=== PATIENT | male | born 1995 | race Caucasian/White ===

== ENCOUNTER 2021-01-31 02:21 | Emergency (ER) | payer OTHER ==
[~2021-01-31] VITALS: Ht 190.5 cm; Wt 114.3 kg
[2021-01-31 02:22] VITALS: BP 140/88
[2021-01-31] MEDS ORDERED: dexameTHASONE 20MG/5ML VIAL (J1100 PER 1MG) IM ONE (03:10)
[2021-01-31] MEDS ORDERED: FAMOTIDINE INJ 20MG/2ML VIAL (S0028 PER 1) IVP ONE (03:10)
[2021-01-31] MEDS ORDERED: dexameTHASONE 20MG/5ML VIAL (J1100 PER 1MG) IV ONE (03:10)
[2021-01-31] MEDS ORDERED: BENA25CA4 PO (04:39)
[2021-01-31] MEDS ORDERED: PRED10TA2 PO (04:39)
== END 2021-01-31 05:00 | disposition home or self-care (01) ==
LOC: M ED 02:21
DX: L25.9 Unspecified contact dermatitis, unspecified cause (principal)
CPT/HCPCS: 96374; 99284; J1100

== ENCOUNTER → 2022-06-07 | Outpatient (CLI) | payer OTHER ==
[~2022-06-07] MED LIST: BENA25CA4 PO; PRED10TA2 PO
== END ==
LOC: M RAD 07:34
PROVIDERS: ATTEND Physician Assistant
DX: M25.522 Pain in left elbow (principal)

== ENCOUNTER 2022-07-28 23:59 | Emergency (ER) | payer OTHER ==
[~2022-07-28] VITALS: Ht 190.5 cm; Wt 104.5 kg
[2022-07-29 00:21] VITALS: BP 156/99
[2022-07-29 01:25] LABS: BASO % 0.4 % (0.0-1.0); EOS % 0.2 % (0.0-3.0); HEMATOCRIT 37.3 % (42.0-52.0); LYMPH # 2.6 10^3/uL (1.5-5.0); LYMPH % 25.2 % (24.0-44.0); MEAN CORPUSCULAR HEMOGLOBIN 29.5 pg (27.0-33.0); MEAN CORPUSCULAR HGB CONC 34.9 g/dl (32.0-36.5); MEAN CORPUSCULAR VOLUME 84.6 fl (80.0-96.0); MONO % 9.5 % (2.0-8.0); NEUTROPHILS # 6.6 10^3/uL (1.5-8.5); NEUTROPHILS % 64.5 % (36.0-66.0); PLATELET COUNT, AUTOMATED 217 10^3/uL (150-450); RED BLOOD COUNT 4.41 10^6/uL (4.30-6.10); WHITE BLOOD COUNT 10.2 10^3/uL (4.0-10.0)
[2022-07-29] MEDS ORDERED: OXYC-517 PO (01:26)
[2022-07-29] MEDS ORDERED: COLA100C5 PO (01:26)
[2022-07-29] MEDS ORDERED: ASPI81CH33 PO (01:26)
[2022-07-29] MEDS ORDERED: CELE1CAP4 PO (01:26)
[2022-07-29] MEDS ORDERED: ONDA-83 PO (01:26)
[2022-07-29] MEDS ORDERED: GABA-282 PO (01:26)
[2022-07-29] MEDS ORDERED: ACET325C5 PO (01:26)
[2022-07-29 02:12] LABS: BLOOD UREA NITROGEN 22 MG/DL (7-18); CALCIUM LEVEL 8.5 MG/DL (8.5-10.1); CARBON DIOXIDE LEVEL 27 MEQ/L (21-32); CHLORIDE LEVEL 108 MEQ/L (98-107); CREATININE FOR GFR 0.97 MG/DL (0.70-1.30); GLOMERULAR FILTRATION RATE > 60.0 (>60); GLUCOSE, FASTING 93 MG/DL (70-100); MAGNESIUM LEVEL 2.1 MG/DL (1.8-2.4); POTASSIUM SERUM 3.8 MEQ/L (3.5-5.1); SODIUM LEVEL 141 MEQ/L (136-145)
[2022-07-29] MEDS ORDERED: OXYCODONE/APAP 5MG/325MG(HOME DOSE PACK) PO ONE (02:25)
== END 2022-07-29 02:48 | disposition home or self-care (01) ==
LOC: EDBD 23:59 → M ED 23:59
DX: T50.905A Adverse effect of unspecified drugs, medicaments and biological substances, initial encounter (principal); I49.49 Other premature depolarization; F10.10 Alcohol abuse, uncomplicated; Z87.891 Personal history of nicotine dependence; Z79.82 Long term (current) use of aspirin; Z79.899 Other long term (current) drug therapy

== ENCOUNTER 2022-11-24 17:23 | Emergency (ER) | payer OTHER ==
[~2022-11-24] VITALS: Ht 190.5 cm; Wt 104.5 kg
[~2022-11-24 17:23] MED LIST changes: +ACET325C5 PO; +ASPI81CH33 PO; +CELE1CAP4 PO; +COLA100C5 PO; +GABA-282 PO; +ONDA-83 PO; +OXYC-517 PO
[2022-11-24 18:39] LABS: HEMATOCRIT 43.8 % (42.0-52.0); HEMOGLOBIN 14.7 g/dl (13.5-17.5); MEAN CORPUSCULAR HEMOGLOBIN 28.8 pg (27.0-33.0); MEAN CORPUSCULAR HGB CONC 33.6 g/dl (32.0-36.5); MEAN CORPUSCULAR VOLUME 85.7 fl (80.0-96.0); PLATELET COUNT, AUTOMATED 287 10^3/uL (150-450); RED BLOOD COUNT 5.11 10^6/uL (4.30-6.10); WHITE BLOOD COUNT 9.2 10^3/uL (4.0-10.0)
[2022-11-24 18:59] LABS: ETHYL ALCOHOL (ETHANOL) 0.004 % (0.000-0.010)
[2022-11-24 19:00] LABS: ACETAMINOPHEN LEVEL < 2.0 UG/ML (10.0-20.0); ALBUMIN 4.4 G/DL (3.2-5.2); ALKALINE PHOSPHATASE 79 U/L (46-116); ALT/SGPT 30 U/L (7.0-40); AST/SGOT 68 U/L (<34); BILIRUBIN,DIRECT 0.6 MG/DL (<0.4); BILIRUBIN,TOTAL 1.6 MG/DL (0.3-1.2); BLOOD UREA NITROGEN 13 MG/DL (9-23); CALCIUM LEVEL 9.9 MG/DL (8.5-10.1); CARBON DIOXIDE LEVEL 30 MMOL/L (20-31); CHLORIDE LEVEL 104 MMOL/L (98-107); CREATININE FOR GFR 1.13 MG/DL (0.70-1.30); GLOMERULAR FILTRATION RATE > 60.0 (>60); GLUCOSE, FASTING 91 MG/DL (60-100); POTASSIUM SERUM 4.1 MMOL/L (3.5-5.1); SALICYLATE LEVEL < 3.0 MG/DL (<30); SODIUM LEVEL 142 MMOL/L (136-145); TOTAL PROTEIN 7.6 G/DL (5.7-8.2)
[2022-11-24 19:02] LABS: THYROID STIMULATING HORMONE 1.315 uIU/ML (0.55-4.78)
[2022-11-24 19:07] LABS: AMPHETAMINES LEVEL URINE NEGATIVE (NEGATIVE); BARBITURATES URINE NEGATIVE (NEGATIVE); BENZODIAZEPINES URINE NEGATIVE (NEGATIVE); CANNABINOIDS URINE NEGATIVE (NEGATIVE); COCAINE METABOLITE URINE NEGATIVE (NEGATIVE); METHADONE URINE NEGATIVE (NEGATIVE); OPIATES URINE NEGATIVE (NEGATIVE); PHENCYCLIDINE URINE NEGATIVE (NEGATIVE)
[2022-11-24] MEDS ORDERED: HOME MED LIST COMPLETE! XX SCH (23:20)
[2022-11-26 18:50] VITALS: BP 160/84
== END 2022-11-26 18:53 ==
LOC: EDBD 17:23 → M ED 17:23
DX: R45.851 Suicidal ideations (principal); R00.1 Bradycardia, unspecified

== ENCOUNTER 2022-12-01 20:30 | Emergency (ER) | payer OTHER ==
[~2022-12-01] VITALS: Ht 190.5 cm; Wt 106.3 kg
[2022-12-01 20:31] VITALS: BP 167/98
[2022-12-01 22:26] LABS: GC DNA AMPLIFICATION NEGATIVE (NEGATIVE)
== END 2022-12-01 21:58 | disposition left against medical advice (07) ==
LOC: M ED 20:30
DX: Z53.21 Procedure and treatment not carried out due to patient leaving prior to being seen by health care provider (principal)

== ENCOUNTER 2023-11-04 19:51 | Emergency (ER) | payer OTHER ==
[~2023-11-04] VITALS: Ht 188 cm; Wt 117.3 kg
[2023-11-04 19:57] VITALS: BP 131/86; TEMP 97.6; O2SAT 100
[2023-11-04] MEDS ORDERED: SERT50TA29 PO (20:02)
== END 2023-11-04 22:11 | disposition left against medical advice (07) ==
LOC: M ED 19:51
DX: Z53.21 Procedure and treatment not carried out due to patient leaving prior to being seen by health care provider (principal)